=== PATIENT | female | born 1980 | race Caucasian/White ===

== ENCOUNTER 2022-05-20 17:31 | Inpatient (IN) | payer MEDICARE, OTHER ==
[~2022-05-20] VITALS: Ht 165.1 cm; Wt 85.6 kg
[2022-05-20 19:04] LABS: BASOPHIL 0.8 % (0-2); EOSINOPHIL 1.7 % (0-5); HCT 52.6 % (37.0-47.0); HGB 16.1 g/dl (12.5-16.0); LYMPHOCYTE 12.1 % (15-48); MCH 27.2 pg (25.0-31.0); MCHC 30.6 g/dL (32.0-36.0); MCV 88.7 fL (78.0-100.0); MONOCYTE 4.3 % (0-12); MPV 10.5 fL (6.0-9.5); NEUTROPHIL 79.2 % (41-80); NRBC 0; PLT 518 K/uL (150-400); RBC 5.93 M/uL (4.20-5.40); RDW 15.9 % (11.5-14.0); WBC 16.2 K/uL (4.0-10.5)
[2022-05-20 19:21] LABS: ALBUMIN 4.4 g/dL (3.4-5.0); BILIRUBIN - TOTAL 0.4 mg/dL (0.2-1.0); BUN/CREAT RATIO (CALC) 11.7 RATIO; CREATININE 0.77 mg/dL (0.51-0.95); GLOBULIN (CALCULATION) 4.4 g/dL; POTASSIUM 4.8 mmol/L (3.5-5.1); TOTAL PROTEIN 8.8 g/dL (6.4-8.2)
[2022-05-20 19:36] LABS: BILIRUBIN NEGATIVE (NEGATIVE); BLOOD TRACE-INTACT Ery/uL (NEGATIVE); CLARITY CLEAR (CLEAR); COLOR YELLOW (YELLOW); GLUCOSE (U) 2+ mg/dL (NORMAL); LEUKOCYTES NEGATIVE Leu/uL (NEGATIVE); NITRITE NEGATIVE (NEGATIVE); PROTEIN 2+ mg/dL (NEGATIVE); SPECIFIC GRAVITY >=1.030 (1.001-1.030); UROBILINOGEN 0.2 mg/dL (0.2-1.0); pH 5.5 (5.0-9.0)
[2022-05-20 19:44] LABS: BACTERIA TRACE; MUCOUS TRACE
[2022-05-20 19:44] LABS: CORONAVIRUS 2019 SARS-COV-2 NEGATIVE (NEGATIVE); INFLUENZA A NAA NEGATIVE (NEGATIVE)
[2022-05-20] MEDS ORDERED: SYNTHROID50 MCG PO (23:23)
[2022-05-20] MEDS ORDERED: SIMVASTATIN10 MG PO (23:24)
[2022-05-20] MEDS ORDERED: DESVENLAFAXINE50 MG PO (23:24)
[2022-05-20] MEDS ORDERED: ALL DAY ALLERGY10 MG PO (23:25)
[2022-05-20] MEDS ORDERED: LOVAZA1 GM PO (23:25)
[2022-05-20] MEDS ORDERED: FETZIMA80 MG PO (23:25)
[2022-05-20] MEDS ORDERED: METFORMIN HCL500 MG PO (23:26)
[2022-05-20] MEDS ORDERED: LITHIUM300 MG PO (23:26)
[2022-05-20] MEDS ORDERED: REQUIP1 MG PO (23:27)
[2022-05-20] MEDS ORDERED: ZESTRIL5 MG PO (23:27)
[2022-05-20] MEDS ORDERED: PRILOSEC20 MG PO (23:27)
[2022-05-20] MEDS ORDERED: ELAVIL50 MG PO (23:28)
[2022-05-20] MEDS ORDERED: LYRICA 50MG CAP50 MG PO (23:28)
[2022-05-21 08:35] LABS: BASOPHIL 0.7 % (0-2); EOSINOPHIL 6.9 % (0-5); HCT 40.3 % (37.0-47.0); HGB 12.7 g/dl (12.5-16.0); LYMPHOCYTE 20.5 % (15-48); MCH 27.5 pg (25.0-31.0); MCHC 31.5 g/dL (32.0-36.0); MCV 87.4 fL (78.0-100.0); MONOCYTE 6.9 % (0-12); MPV 10.2 fL (6.0-9.5); NEUTROPHIL 64.8 % (41-80); NRBC 0; PLT 329 K/uL (150-400); RBC 4.61 M/uL (4.20-5.40); RDW 15.5 % (11.5-14.0); WBC 8.7 K/uL (4.0-10.5)
[2022-05-21 08:56] LABS: ALBUMIN 2.8 g/dL (3.4-5.0); BILIRUBIN - TOTAL 0.3 mg/dL (0.2-1.0); BUN/CREAT RATIO (CALC) 12.7 RATIO; CREATININE 0.63 mg/dL (0.51-0.95); GLOBULIN (CALCULATION) 2.6 g/dL; MAGNESIUM 1.8 mg/dL (1.8-2.4); PHOSPHORUS 1.7 mg/dL (2.6-4.7)
[2022-05-21 09:01] LABS: POTASSIUM 3.1 mmol/L (3.5-5.1); TOTAL PROTEIN 5.4 g/dL (6.4-8.2)
[2022-05-21 15:02] LABS: BUN/CREAT RATIO (CALC) 10.3 RATIO; CREATININE 0.58 mg/dL (0.51-0.95); POTASSIUM 3.6 mmol/L (3.5-5.1)
[2022-05-22 05:52] LABS: BASOPHIL 0.7 % (0-2); EOSINOPHIL 8.8 % (0-5); HCT 39.9 % (37.0-47.0); HGB 12.7 g/dl (12.5-16.0); LYMPHOCYTE 29.2 % (15-48); MCH 27.4 pg (25.0-31.0); MCHC 31.8 g/dL (32.0-36.0); MCV 86.2 fL (78.0-100.0); MONOCYTE 4.8 % (0-12); MPV 10.4 fL (6.0-9.5); NEUTROPHIL 56.4 % (41-80); NRBC 0; PLT 310 K/uL (150-400); RBC 4.63 M/uL (4.20-5.40); RDW 15.6 % (11.5-14.0); WBC 6.7 K/uL (4.0-10.5)
[2022-05-22 06:57] LABS: ALBUMIN 2.9 g/dL (3.4-5.0); ALKALINE PHOSHATASE 147 U/L (46-116); ALT 18 U/L (14-59); AST 11 U/L (15-37); BILIRUBIN - TOTAL 0.2 mg/dL (0.2-1.0); BUN 5 mg/dL (7-18); BUN/CREAT RATIO (CALC) 8.9 RATIO; CHLORIDE 109 mmol/L (98-107); CO2 (BICARBONATE) 19 mmol/L (21-32); CREATININE 0.56 mg/dL (0.51-0.95); GLOBULIN (CALCULATION) 2.7 g/dL; GLUCOSE 189 mg/dL (74-106); MAGNESIUM 1.9 mg/dL (1.8-2.4); TOTAL PROTEIN 5.6 g/dL (6.4-8.2)
[2022-05-22 07:10] LABS: C-REACTIVE PROTEIN <0.20 mg/dL (<=0.90)
--- NOTE | 2022-05-22 13:23 | NUR ---
PATIENT DISCHARGED VIA WHEELCHAIR TO FRONT DOOR. IVS AND MONITOR DCD. VERBALIZED IMPORTANCE OF RESTARTING INSULIN PUMP SOON SHE GETS HOME. AND OF DISCHARGE INSTRUCTIONS.
== END 2022-05-22 13:10 | disposition home or self-care (01) | DRG 637 ==
LOC: FER 17:31 → FICU 21:20
PROVIDERS: Emergency Medicine; Nurse Practitioner; ADMIT Internal Medicine
DX: E10.10 Type 1 diabetes mellitus with ketoacidosis without coma (principal); G93.41 Metabolic encephalopathy; R65.10 Systemic inflammatory response syndrome (SIRS) of non-infectious origin without acute organ dysfunction; Z20.822 Contact with and (suspected) exposure to COVID-19; F31.9 Bipolar disorder, unspecified; E86.0 Dehydration; F41.9 Anxiety disorder, unspecified; F17.210 Nicotine dependence, cigarettes, uncomplicated; Z28.310 Unvaccinated for COVID-19
CPT/HCPCS: 36415; 36600; 71045; 80048; 80053; 80061; 81001; 82009; 82803; 82962; 83036; 83605; 83735; 83880; 84100; 84145; 84484; 85025; 86140; 93005; C9113; J1170; J1650; J1885; J2405; J7030; J7042; U0002

== ENCOUNTER 2022-07-02 18:00 | Emergency (ER) | payer MEDICARE, OTHER ==
[~2022-07-02 18:00] MED LIST: ALL DAY ALLERGY10 MG PO; DESVENLAFAXINE50 MG PO; ELAVIL50 MG PO; FETZIMA80 MG PO; LITHIUM300 MG PO; LOVAZA1 GM PO; LYRICA 50MG CAP50 MG PO; METFORMIN HCL500 MG PO; PRILOSEC20 MG PO; REQUIP1 MG PO; SIMVASTATIN10 MG PO; SYNTHROID50 MCG PO; ZESTRIL5 MG PO
[2022-07-02 18:30] LABS: BASOPHIL 0.3 % (0-2); EOSINOPHIL 1.6 % (0-5); HCT 43.1 % (37.0-47.0); HGB 13.2 g/dl (12.5-16.0); LYMPHOCYTE 9.9 % (15-48); MCH 27.2 pg (25.0-31.0); MCHC 30.6 g/dL (32.0-36.0); MCV 88.7 fL (78.0-100.0); MPV 9.8 fL (6.0-9.5); NEUTROPHIL 82.8 % (41-80); NRBC 0; PLT 376 K/uL (150-400); RBC 4.86 M/uL (4.20-5.40); RDW 14.7 % (11.5-14.0); WBC 18.6 K/uL (4.0-10.5)
[2022-07-02 18:43] LABS: INR 0.91 (0.9-1.2); PTT 28.7 SECONDS (24.9-34.6)
[2022-07-02 18:54] LABS: ALBUMIN 3.7 g/dL (3.4-5.0); BILIRUBIN - TOTAL 0.2 mg/dL (0.2-1.0); CREATININE 0.82 mg/dL (0.51-0.95); GLOBULIN (CALCULATION) 3.5 g/dL; POTASSIUM 4.5 mmol/L (3.5-5.1); TOTAL PROTEIN 7.2 g/dL (6.4-8.2)
[2022-07-02 19:12] LABS: BILIRUBIN NEGATIVE (NEGATIVE); BLOOD NEGATIVE Ery/uL (NEGATIVE); CLARITY CLEAR (CLEAR); COLOR YELLOW (YELLOW); GLUCOSE (U) NORMAL (NORMAL); LEUKOCYTES NEGATIVE Leu/uL (NEGATIVE); NITRITE NEGATIVE (NEGATIVE); PROTEIN TRACE (LOW) mg/dL (NEGATIVE); SPECIFIC GRAVITY >=1.030 (1.001-1.030); UROBILINOGEN 0.2 mg/dL (0.2-1.0)
[2022-07-02 19:30] LABS: BACTERIA 1+; CALCIUM OXALATE CRYSTALS MODERATE; URINARY RBC RARE
[2022-07-02] MEDS ORDERED: CIPRO500 MG PO (23:39)
[2022-07-02] MEDS ORDERED: DIFLUCAN 100MG100 MG PO (23:39)
[2022-07-02] MEDS ORDERED: NORCO 5-325 TA1 EACH PO (23:39)
[2022-07-02] MEDS ORDERED: ONDANSETRON ODT4 MG PO (23:39)
[2022-07-03] MEDS ORDERED: NORCO 5-325 TA1 EACH PO (12:26)
== END 2022-07-03 12:28 | disposition home or self-care (01) ==
LOC: FER 18:00
PROVIDERS: Internal Medicine
DX: N39.0 Urinary tract infection, site not specified (principal); E11.9 Type 2 diabetes mellitus without complications; F17.210 Nicotine dependence, cigarettes, uncomplicated; Z96.41 Presence of insulin pump (external) (internal); Z88.5 Allergy status to narcotic agent; Z88.6 Allergy status to analgesic agent; Z20.822 Contact with and (suspected) exposure to COVID-19
CPT/HCPCS: 36415; 80053; 81001; 83605; 83690; 84145; 85025; 85610; 85730; 87040; J1885; J2405; J2543; J7030; Q9967; U0002